=== PATIENT | female | born 1965 | race Caucasian/White ===

== ENCOUNTER → 2018-03-21 | Outpatient (CLI) | payer BC ==
[~2018-03-21] MED LIST: AMIT50TA3 PO; GBPN300C PO; HCTZ12.5T PO; HYDR-3454 PO; LANS30CA8 PO; METH10TA82 PO; PROP120C21 PO; TIZA4TAB55 PO
--- NOTE | 2018-03-21 20:54 | Diagnostic Imaging Report ---
PROCEDURE: US Thyroid. TECHNIQUE: Multiple real-time grayscale images were obtained of the thyroid in various projections. INDICATION: Graves' disease. No priors. FINDINGS: The right thyroid lobe is 5.4 x 1.6 x 1.6 cm, the left lobe 4.9 x 1.5 x 1.5 cm. The right lobe is nonfocal. The subcentimeter nodules in the left lobe. An upper pole nodule measured 9 mm maximal, is well-defined and hypoechoic. A midpole nodule measures 8 mm maximal, well-defined and hypoechoic. IMPRESSION: Circumscribed well-defined hypoechoic left lobe nodules without apparent complication or irregularity favoring benignity. Followup in one year's time suggested. Right lobe nonfocal. Dictated by: Dictated on workstation # [id number]
== END ==
LOC: RAD 12:30
PROVIDERS: ATTEND Nurse Practitioner
DX: E05.00 Thyrotoxicosis with diffuse goiter without thyrotoxic crisis or storm (principal); Z86.39 Personal history of other endocrine, nutritional and metabolic disease
CPT/HCPCS: 76536

== ENCOUNTER → 2018-07-15 | Outpatient (CLI) | payer BC ==
--- NOTE | 2018-07-15 15:07 | Diagnostic Imaging Report ---
PROCEDURE: US Non-ob pelvis comp/trans. TECHNIQUE: Multiple realtime grayscale images were obtained of the pelvis in various projections endovaginally. Transabdominal imaging was also performed. INDICATION: Status post hysterectomy and left oophorectomy 32 years ago. Patient complains of right pelvic pain. FINDINGS: The uterus is surgically absent. Neither ovary could be visualized. There is a cyst in the right adnexa measuring 4.6 x 4.0 x 4.5 cm. This appears to be fairly simple. No significant wall thickening or nodularity is detected. IMPRESSION: Status post hysterectomy and nonvisualized ovaries. There is a 4.6 cm simple right adnexal cyst. Dictated by: Dictated on workstation # [id number]
== END ==
LOC: RAD 09:38
PROVIDERS: ATTEND Obstetrics & Gynecology
DX: N83.8 Other noninflammatory disorders of ovary, fallopian tube and broad ligament (principal); Z90.710 Acquired absence of both cervix and uterus
CPT/HCPCS: 76830; 76856

== ENCOUNTER 2019-03-16 05:46 | Outpatient (CLI) | payer BC ==
[~2019-03-16] VITALS: Ht 172.7 cm; Wt 119.5 kg
[2019-03-16] MEDS ORDERED: GABA-488 PO (15:22)
[2019-03-16] MEDS ORDERED: HYDR-700 PO (15:22)
[2019-03-16] MEDS ORDERED: LEVO88TA54 PO (15:22)
[2019-03-16] MEDS ORDERED: CHOL200014 PO (15:22)
[2019-03-16] MEDS ORDERED: CYAN100088 PO (15:22)
[2019-03-16] MEDS ORDERED: TRAZ150T72 PO (15:22)
[2019-03-16] MEDS ORDERED: DOCU100T7 PO (15:22)
[2019-03-16] MEDS ORDERED: PANT40TA3 PO (15:22)
[2019-03-16] MEDS ORDERED: HYDR25TA4 PO (15:22)
[2019-03-16] MEDS ORDERED: SOLI10TA2 PO (15:22)
== END 2019-03-16 15:23 | disposition home or self-care (01) ==
LOC: PREOP 05:46
PROVIDERS: ATTEND Surgery
DX: Z01.818 Encounter for other preprocedural examination (principal)

== ENCOUNTER 2019-03-23 05:41 | Outpatient (CLI) | payer BC ==
[~2019-03-23] VITALS: Ht 172.7 cm; Wt 119.5 kg
[~2019-03-23 05:41] MED LIST changes: +CHOL200014 PO; +CYAN100088 PO; +DOCU100T7 PO; +GABA-488 PO; +HYDR-700 PO; +HYDR25TA4 PO; +LEVO88TA54 PO; +PANT40TA3 PO; +SOLI10TA2 PO; +TRAZ150T72 PO
[2019-03-23 13:19] LABS: BASOPHILS % (AUTO) 1 % (0-10); EOSINOPHILS # (AUTO) 0.2 10^3/uL (0.0-0.3); EOSINOPHILS % (AUTO) 3 % (0-10); HEMATOCRIT 42 % (35-52); HEMOGLOBIN 14.3 G/DL (11.5-16.0); LYMPHOCYTES % (AUTO) 40 % (12-44); MEAN CORPUSCULAR HEMOGLOBIN 31 PG (25-34); MEAN CORPUSCULAR HGB CONC 34 G/DL (32-36); MEAN CORPUSCULAR VOLUME 90 FL (80-99); MEAN PLATELET VOLUME 9.2 FL (7.4-10.4); MONOCYTES # (AUTO) 0.4 X 10^3 (0.0-1.0); MONOCYTES % (AUTO) 8 % (0-12); NEUTROPHILS # (AUTO) 2.4 X 10^3 (1.8-7.8); NEUTROPHILS % (AUTO) 48 % (42-75); PLATELET COUNT 269 10^3/uL (130-400); RED CELL DISTRIBUTION WIDTH 14.2 % (10.0-14.5)
== END 2019-03-23 13:28 ==
LOC: PREOP 05:41
PROVIDERS: ATTEND Surgery
DX: Z01.812 Encounter for preprocedural laboratory examination (principal); Z11.2 Encounter for screening for other bacterial diseases; K40.90 Unilateral inguinal hernia, without obstruction or gangrene, not specified as recurrent
CPT/HCPCS: 36415; 85025; 87081

== ENCOUNTER 2019-03-25 06:55 | Day surgery (SDC) | payer BC ==
[~2019-03-25] VITALS: Ht 173 cm; Wt 119.5 kg
[2019-03-25] VITALS (13 sets, daily range): BP systolic 117–169; BP diastolic 65–88
[2019-03-25] MEDS ORDERED: ceFAZolin 2 GM/50 ML NS 50 ML IV ONE (07:30)
[2019-03-25] MEDS ORDERED: CATHETER FLUSH 10 ML SYR IV PRN (07:45)
[2019-03-25] MEDS: LACTATED RINGERS 1,000 ML IV PRN ×2 (07:47→10:13)
--- NOTE | 2019-03-25 08:14 | Progress Note-Pre Operative ---
Pre-Operative Progress Note H&P Reviewed The H&P was reviewed, patient examined and no changes noted. Time Seen by Provider: 08:11 Date H&P Reviewed: Mar 25, 2019 Time H&P Reviewed: 08:12 Pre-Operative Diagnosis: Incisional/Ventral hernia JOSELUIS KEENAN DO Mar 25, 2019 08:14
[2019-03-25] MEDS ORDERED: DEXAMETHASONE 10 MG/ML (DECADRON) 1 ML VIAL ONE (08:41)
[2019-03-25] MEDS ORDERED: GLYCOPYRROLATE 0.2 MG/ML (ROBINUL) 2 ML VIAL ONE ×2 (08:41→10:20)
[2019-03-25] MEDS ORDERED: fentaNYL INJECTION 100 MCG/2 ML AMP ONE (08:41)
[2019-03-25] MEDS ORDERED: SEVOFLURANE (ULTANE) 15 ML INHAL SOLN ONE ×3 (08:41→10:17)
[2019-03-25] MEDS ORDERED: ONDANSETRON 4 MG/2 ML (SDV) Z0FRAN ONE (08:41)
[2019-03-25] MEDS ORDERED: proPOfol 200 MG/20 ML (DIPRIVAN) VIAL IV ONE (08:41)
[2019-03-25] MEDS ORDERED: NEOSTIGMINE 3 MG/3 ML VIAL ONE (08:41)
[2019-03-25] MEDS ORDERED: LIDOCAINE PF 2% 5 ML (XYLOCAINE) VIAL ONE (08:41)
[2019-03-25] MEDS ORDERED: ROCURONIUM 10 MG/ML 5 ML SYRINGE IV ONE (08:41)
[2019-03-25] MEDS ORDERED: BUP/EPI 0.5% 1:200,000 (SENSORCAINE) 30 ML VIAL ONE (08:42)
[2019-03-25] MEDS ORDERED: MIDAZOLAM 2 MG/2 ML (VERSED) VIAL ONE (08:42)
[2019-03-25] MEDS ORDERED: HYDROmorphone 2 MG/ML VIAL (DILAUDID) ONE ×2 (09:59→10:50)
[2019-03-25] MEDS ORDERED: KETOROLAC 30 MG/ML VIAL ONE (10:16)
--- NOTE | 2019-03-25 10:37 | Progress Note-Post Operative ---
Post-Operative Progess Note Surgeon (s)/Truck Body Builder Apprentice (s) Surgeon JOSELUIS KEENAN DO Truck Body Builder Apprentice: Josh Pre-Operative Diagnosis Incisional/Ventral hernia Post-Operative Diagnosis Incarcerated Inc/Vent hernia Incarcerated [facility] Procedure & Operative Findings Date of Procedure 03/25/19 Procedure Performed/Findings Lap inc/ventral herniarraphy with mesh placement Lap UH with mesh Anesthesia Type GET Estimated Blood Loss Estimated blood loss (mL): scant Specimens/Packing Specimens Removed hernia contents JOSELUIS KEENAN DO Mar 25, 2019 10:37
[2019-03-25] MEDS ORDERED: ACHD5005 PO (10:39)
--- NOTE | 2019-03-25 10:40 | Discharge Inst-Surgical ---
Discharge Inst-Surgical Depart Medication/Instructions New, Converted or Re-Newed RX: RX Given to Pt/Family Patient Instructions Follow up Appt: Make appointment for 1 week. [phone] Instructions: No lifting greater than 20 pounds. No strenuous activity. May shower in 24 hours, no tub bath or soaking. Use incentive spirometer at home as directed. No Smoking Skin/Wound Care: May remove bandages in am. You need to leave the Dermabond on incision it will fall off on it's own. Symptoms to Report: Appetite Changes, Extremity Discoloration, Numbness/Tingling, Swelling Increased, Bleeding Excessive, Eyesight Changes, Pain Increased, Urine Color Change, Constipation(Persistent), Fever over 101 degree F, Pain/Pressure in chest, Urinating Difficulty, Cough Up/Vomit Blood, Heart Beat Irreg/Pounding, Pain/Pressure in jaw, Cramps in feet or legs, Lightheadedness, Pain/Pressure in shoulder, Diarrhea(Persistent), Memory Changes Suddenly, Questions/Concerns, Weight gain consecutive days, Dizziness/Fainting, Nausea/Vomiting, Shortness of Breath, Weight gain over 2 pounds If questions or concerns contact your physician Or seek help at emergency department. Activity Activity as Tolerated: Yes Activity Instructions: Avoid Stress to Incision Driving Instructions: No Driving/Refer to Dr. Trejo Discharge Diet: No Restrictions Diet After 24 Hours: Clear Liquid if Nauseous If Any Problems/Questions/Issu: Contact Your Physician, Go to Emergency Room Skin/Wound Care Infection Signs and Symptoms: Increased Redness, Foul Odor of Wound, Increased Drainage, Skin Itchy or Has a Rash, Increased Swelling, Temperature Above 101 F Wound Care Comment: heating pad to shoulder and neck tonight for pain Bathing Instructions: Shower Stitches/[place]/Dermabond Dis: Dermabond Ice Pack: Ice On and Off Site JOSELUIS KEENAN DO Mar 25, 2019 10:40
[2019-03-25] MEDS ORDERED: HYDROmorphone 2 MG/ML VIAL (DILAUDID) IV ONE (10:45)
[2019-03-25] MEDS ORDERED: ONDANSETRON 4 MG/2 ML (SDV) Z0FRAN IVP PRN (10:45)
[2019-03-25] MEDS ORDERED: HYDROcodone/APAP 5 MG/325 MG (LORTAB) TAB ONE (12:12)
[2019-03-25] MEDS ORDERED: HYDROcodone/APAP 5 MG/325 MG (LORTAB) TAB PO ONE (12:15)
--- NOTE | 2019-03-25 12:15 | Anesthesia-General Post-Op ---
General Patient Condition Mental Status/LOC: Same as Preop Cardiovascular: Satisfactory Nausea/Vomiting: Absent Respiratory: Satisfactory Pain: Controlled Complications: Absent Post Op Complications Complications None Follow Up Care/Instructions Patient Instructions None needed. Anesthesia/Patient Condition Patient Condition Patient is doing well, no complaints, stable vital signs, no apparent adverse anesthesia problems. No complications reported per nursing. D/C home per [facility] [place] Criteria: Yes LUI [place] CRNA Mar 25, 2019 12:15
--- NOTE | 2019-03-25 17:55 | OPERATIVE REPORT ---
DATE OF SERVICE: PREOPERATIVE DIAGNOSIS: Incarcerated ventral incisional hernia. POSTOPERATIVE DIAGNOSES: 1. Incarcerated ventral incisional hernia. 2. Incarcerated umbilical hernia. PROCEDURES: 1. Laparoscopic ventral incisional herniorrhaphy with mesh placement. 2. Laparoscopic umbilical herniorrhaphy with mesh placement. SURGEON: Joseluis Mayers DO CONCRETE HOPPER OPERATOR: Sohail Moreno DO ANESTHESIA: General endotracheal tube. SPECIMEN: Hernia contents. BLOOD LOSS: Scant. FLUIDS: Per anesthesia. POSTOPERATIVE CONDITION: Stable. INDICATION FOR PROCEDURE: The patient is a 53-year-old female who is complaining of pain and bulging in the midline diagnosed with incarcerated incisional hernia. FINDINGS: The patient had a very large incarcerated ventral incisional hernia, this is possibly from the port from her gallbladder, but also found an incarcerated umbilical hernia. Pictures were taken. PROCEDURE NOTE: After informed consent was obtained, the patient was brought to the operating room, placed on the operating table in supine position. She was sterilely prepped and draped in normal fashion. I then made an incision in the left upper quadrant just below the ribs, infiltrated the skin with local, then made an incision with #11 blade, carried down to skin and subcutaneous tissue, deepened down to subcutaneous tissue with Bovie electrocautery down to fascia. Fascia incised with Bovie electrocautery, bluntly spread the muscle apart and then went to the posterior fascia and then bluntly entered the abdomen, swept a finger around, placed 11 mm trocar port under direct visualization. Created pneumoperitoneum and then placed 2 more ports in normal fashion using local lidocaine, 11 blade for stab incision and VersaStep system, all done under direct visualization, one in the right side of the abdomen at about the height of the umbilicus and then one in left lower quadrant. Upon entry, noted a very large incisional hernia. Picture was taken and then noted incarcerated umbilical hernia, took a picture of this started with the incisional hernia, which was up above the umbilicus by about 5 or 6 cm grasp the fat and contents are in there and started taking these out with LigaSure, clamping, coagulating and transecting pulled these down and pulling this out of the hernia, then elected to make 2 small stab incisions with #11 blade and used 0 Vicryl [id number] suture and simple suture to close this fascial defect, closed nicely, took a picture of this. At this point, had brought the pneumoperitoneum down to 10 mm, elected to place a 10 x 15 mesh to cover this large opening, cover this nicely, then tacked this in place with a SecureStrap Tacker, had placed the Bard balloon mesh, grasped the balloon held up, then removed the balloon, tacked on the inside of the mesh and then took down the fat out of the umbilical hernia and then elected to place a 4-1/2 inch round mesh here. This was placed just below the upper mesh. Again using the Bard balloon mesh, stab incision to place a Mohamud-Larissa to grab the balloon, pulled this up through, blew the balloon up, held this in place and then tacked this with a SecureStrap as well around at 6, 9 and 12 o'clock position as well as in between 0.5 to 1 cm intervals and then in the middle as a crown type just exactly like we did the upper one. These looked nice together with abdominal wall, took pictures and at this time, then removed these and elected to remove all the ports, then closed the left upper quadrant incision, closing the fascia with 0 Vicryl [id number] suture. Copiously irrigated incisions and closed the two 5 mm incisions with single interrupted 4-0 undyed Monocryl subcuticular stitch, closed the left upper quadrant incision with 3 interrupted 4-0 undyed Monocryl subcuticular stitches. Area was cleaned and dried. Dermabond placed. The patient tolerated the procedure. Sponge, instrument and needle count correct at the end of the case. Job ID: [id number] DocumentID: [id number] Dictated Date: 03/25/2019 10:48:30 Factory Superintendent Date: 03/25/2019 17:55:09 Dictated By: JOSELUIS MAYERS DO
== END 2019-03-25 13:35 | disposition home or self-care (01) ==
LOC: SDC 06:55
PROVIDERS: ATTEND Surgery
DX: K43.0 Incisional hernia with obstruction, without gangrene (principal); K42.0 Umbilical hernia with obstruction, without gangrene; K21.9 Gastro-esophageal reflux disease without esophagitis; I10 Essential (primary) hypertension; E66.9 Obesity, unspecified; F17.210 Nicotine dependence, cigarettes, uncomplicated; Z85.41 Personal history of malignant neoplasm of cervix uteri; Z90.89 Acquired absence of other organs; Z88.5 Allergy status to narcotic agent; Z79.899 Other long term (current) drug therapy; Z90.710 Acquired absence of both cervix and uterus; Z90.49 Acquired absence of other specified parts of digestive tract; Z79.891 Long term (current) use of opiate analgesic